=== PATIENT | male | born 1955 | race African-American/Black ===

== ENCOUNTER → 2019-09-17 | Outpatient (CLI) | payer BC, MEDICARE ==
[~2019-09-17] MED LIST: MULT-108 PO; magnesium PO
== END | disposition home or self-care (01) ==
LOC: STAR 12:33
PROVIDERS: ATTEND Urology
DX: Z01.818 Encounter for other preprocedural examination (principal); N21.0 Calculus in bladder
CPT/HCPCS: 93005

== ENCOUNTER 2019-09-22 09:00 | Day surgery (SDC) | payer MEDICARE ==
[~2019-09-22] VITALS: Ht 170.2 cm; Wt 84.9 kg
[2019-09-22] MEDS ORDERED: LACTATED RINGERS 1,000 ML IV SCH (09:23)
[2019-09-22] MEDS ORDERED: PROPOFOL 50 ML ONE ×2 (11:44→13:10)
[2019-09-22] MEDS ORDERED: MIDAZOLAM 1 MG/ML, 2ML ONE (11:44)
[2019-09-22] MEDS ORDERED: FENTANYL PF 250 MCG/5ML ONE (11:44)
[2019-09-22] MEDS ORDERED: CEFAZOLIN 1,000 MG ONE (12:38)
[2019-09-22] MEDS ORDERED: ONDANSETRON 2MG/ML, 2ML IV PRN (13:00)
[2019-09-22] MEDS ORDERED: OXYcodone 5 MG/5 ML ORAL.SOL UDC PO PRN (13:00)
[2019-09-22] MEDS ORDERED: DIAZEPAM 5 MG/ML, 2ML IVPush PRN (13:00)
[2019-09-22] MEDS ORDERED: MEPERIDINE/PF 25MG/ML,1ML IVPush PRN (13:00)
[2019-09-22] MEDS ORDERED: FENTANYL PF 100 MCG/2ML IV PRN (13:00)
[2019-09-22] MEDS ORDERED: EPHEDRINE 50 MG/ML, 1ML IVPush PRN (13:00)
[2019-09-22] MEDS ORDERED: MORPHINE SULFATE 4 MG/ML, 1ML IVPush PRN (13:00)
[2019-09-22] MEDS ORDERED: ACETAMINOPHEN 325 MG TABLET PO PRN (13:00)
[2019-09-22] MEDS ORDERED: DIPHENHYDRAMINE 50 MG/ML, 1ML IVPush PRN (13:00)
[2019-09-22] MEDS ORDERED: EPHEDRINE 50 MG/ML, 1ML IM PRN (13:00)
[2019-09-22] MEDS ORDERED: ONDANSETRON ODT 8 MG PO PRN (13:00)
[2019-09-22] MEDS ORDERED: PROMETHAZINE 25 MG/ML, 1ML IV PRN (13:00)
[2019-09-22] MEDS ORDERED: PROPOFOL 10 MG/ML, 20ML ONE ×2 (13:02)
[2019-09-22] MEDS ORDERED: ONDANSETRON 2MG/ML, 2ML ONE (13:02)
[2019-09-22] MEDS ORDERED: DEXAMETHASONE 4 MG/ML, 1ML ONE (13:02)
== END 2019-09-22 18:15 | disposition home or self-care (01) ==
LOC: OUT 09:00
PROVIDERS: ATTEND Urology
DX: N21.0 Calculus in bladder (principal)
CPT/HCPCS: 52318; 82360; 88300; J0690; J1100; J2250; J2405; J2704; J3010; J7120